=== PATIENT | female | born 1955 | race Caucasian/White ===

== ENCOUNTER 2017-12-09 08:41 | Day surgery (SDC) | payer OTHER ==
[2015-09-22 13:26] VITALS: BMI 31.2
[2017-12-09] MEDS ORDERED: Propofol 10 mg/ml Inj (20 ML) ONE (11:02)
[2017-12-09] MEDS ORDERED: Midazolam 2 MG/2 ML VIAL ONE (11:02)
[2017-12-09] MEDS ORDERED: Sodium Chloride 0.9% 1,000 ML IV SCH (12:15)
[2017-12-09 12:28] VITALS: RESP 16
[2017-12-09 14:27] VITALS: BP 142/57; PULSE 64; TEMP 97.5; O2SAT 98
== END 2017-12-09 13:57 | disposition home or self-care (01) ==
LOC: ENDO 08:41
PROVIDERS: ATTEND Internal Medicine Gastroenterology
DX: K21.0 Gastro-esophageal reflux disease with esophagitis (principal); K44.9 Diaphragmatic hernia without obstruction or gangrene; K29.50 Unspecified chronic gastritis without bleeding; K57.30 Diverticulosis of large intestine without perforation or abscess without bleeding; K64.8 Other hemorrhoids; K64.4 Residual hemorrhoidal skin tags; D12.0 Benign neoplasm of cecum
CPT/HCPCS: 43239; 45380; 45385; 88305; 88312; 88342; J2001; J2250; J2704; J3010; J7030; J7040

== ENCOUNTER 2018-03-24 07:16 | Day surgery (SDC) | payer OTHER ==
[2018-03-22 09:05] VITALS: BMI 33.2
[2018-03-24] MEDS ORDERED: Propofol 10 mg/ml Inj (20 ML) ONE (09:30)
[2018-03-24] MEDS ORDERED: Sodium Chloride 0.9% 1,000 ML IV SCH (10:15)
[2018-03-24 10:35] VITALS: BP 142/72; PULSE 65; RESP 19; TEMP 97.6; O2SAT 100
== END 2018-03-24 11:11 | disposition home or self-care (01) ==
LOC: ENDO 07:16
PROVIDERS: ATTEND Internal Medicine Gastroenterology
DX: K22.70 Barrett's esophagus without dysplasia (principal); K44.9 Diaphragmatic hernia without obstruction or gangrene; I10 Essential (primary) hypertension
CPT/HCPCS: 43239; 88305; 88312; J2001; J2704; J7030; J7040

== ENCOUNTER 2018-07-24 09:10 | Outpatient (CLI) | payer OTHER | END 2018-07-24 09:11 | disposition home or self-care (01) | LOC: RAD 09:10 | DX: R92.0 Mammographic microcalcification found on diagnostic imaging of breast (principal) ==

== ENCOUNTER 2018-08-09 08:58 | Outpatient (CLI) | payer OTHER | END 2018-08-09 08:59 | disposition home or self-care (01) | LOC: RAD 08:58 | DX: N63.0 Unspecified lump in unspecified breast (principal) ==